=== PATIENT | male | born 2000 | race Caucasian/White ===

== ENCOUNTER 2021-11-20 22:39 | Observation (INO) | payer OTHER ==
[~2021-11-20] VITALS: Ht 182.9 cm; Wt 81.0 kg
[2021-11-20 22:58] LABS: BASO % 0.7 % (0.0-2.0); EOS # 0.4 K/mm3 (0.0-0.7); EOS % 7.7 % (0.0-4.0); GRAN # 2.4 K/mm3 (1.4-6.5); GRAN % 43.8 % (42.2-75.2); HEMATOCRIT 41.5 % (42.0-52.0); HEMOGLOBIN 14.1 g/dl (13.5-18.0); LYMPH # 1.8 K/mm3 (1.2-3.4); LYMPH % 33.7 % (20.0-51.0); MEAN CELL VOLUME 92 fl (80.0-100.0); MEAN CORPUSCULAR HEMOGLOBIN 31 pg (27-31); MEAN CORPUSCULAR HGB CONC 34 g/dl (33.0-37.0); MEAN PLATELET VOLUME 9.9 fl (7.4-10.4); MONO # 0.8 K/mm3 (0.1-0.6); MONO % 13.7 % (1.7-9.3); PLATELET COUNT 244 K/mm3 (130-400); RED BLOOD COUNT 4.53 M/mm3 (4.20-5.60); REDCELL DISTRIBUTION WIDTH-CV 12.7 % (11.5-14.5)
[2021-11-20 23:09] LABS: BILIRUBIN,TOTAL 0.3 mg/dL (0.2-1.2); CALCIUM 8.7 mg/dL (8.4-10.2); CREATININE, serum 1.19 mg/dL (0.72-1.25); POTASSIUM 3.7 mmol/L (3.5-4.5); TOTAL PROTEIN 7.5 gm/dL (6.2-8.1)
[2021-11-20] MEDS ORDERED: RT ADVAIR 128 DISKUS IH ×2 (23:30→23:31)
[2021-11-20] MEDS ORDERED: VENTOLIN0.09 MG IH (23:31)
[2021-11-20] MEDS ORDERED: PROZAC 10MG10 MG PO (23:32)
[2021-11-21 08:30] VITALS: BP 114/55; PULSE 79; TEMP 98
--- NOTE | 2021-11-21 10:30 | NUR ---
Pt arrived to the floor from ED. He is alert and oriented with pain complaints to his right side. Order for oral pain medication received and medication given. Oriented pt to his room upon arrival and educated on room service, plan of care and pain management. Pt is steady on his feet and has no complaints of feeling dizzy. Call light within reach. I did give him some snacks, water and he did order something to eat
[2021-11-21 12:55] VITALS: BP 116/58; PULSE 76; TEMP 98.2
[2021-11-21 15:35] VITALS: BP 127/70; PULSE 76; TEMP 98.4
--- NOTE | 2021-11-21 16:00 | NUR ---
Pt has continued to do well. Some pain complaints but reports the oral pain medication given is taking care of it. Pt has had some visitors off and on throughout the day.
--- NOTE | 2021-11-21 16:07 | NUR ---
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 He is fully independent with his ADL's. He utilizes [facility] for PCP and prescription needs. Patient does not have a DPOA-HC established. Education provided and he provides his mothers name Shakira Dunne ([phone]) as a contact but denied offer to complete form. Patient is planning on returning home once medically ready. Discharge plan:Home
[2021-11-21 16:57] LABS: HEMATOCRIT 40.4 % (42.0-52.0); HEMOGLOBIN 13.9 g/dl (13.5-18.0)
[2021-11-21 20:35] VITALS: BP 141/80; PULSE 74; TEMP 98.6
[2021-11-22 00:02] VITALS: BP 119/68; PULSE 60
--- NOTE | 2021-11-22 02:20 | NUR ---
PATIENT IN BED ON ROOM ENTRY. ALERT AND ORIENTED. HS MEDS PER EMAR. C/O MOD PAIN TO ABD AND R ARM. SCHEDULED MOTRIN GIVEN. PATIENT UP AMBULATING IN HALLS WITH FAMILY. DENIES ADDITIONAL NEEDS. STATES HE IS READY TO GO HOME.
[2021-11-22 03:51] VITALS: BP 109/67; PULSE 70; TEMP 98.6
--- NOTE | 2021-11-22 06:49 | NUR ---
Shift report received from maintenance mechanic 2nd shift RN
[2021-11-22 07:07] LABS: HEMATOCRIT 42.5 % (42.0-52.0); HEMOGLOBIN 14.3 g/dl (13.5-18.0)
[2021-11-22 08:02] VITALS: BP 121/62; PULSE 74; TEMP 97.7
--- NOTE | 2021-11-22 08:57 | NUR ---
Pt awake and lying supine in bed w/ HOB slightly elevated. Pt. reporting right sided rib pain. Silver Star given at his request. Pt. denies shortness or breath/dyspnea. Denies nausea/abd. pain. Abrasions/lacs present to right upper arm and right lower arm. Dressing/janneth wraps are CDI. Pt. denies further needs at this time. Call light is in his reach
[2021-11-22] MEDS ORDERED: NORCO 325 MG-51 TAB PO (11:52)
[2021-11-22] MEDS ORDERED: MOTRIN 800800 MG/TAB PO (11:52)
--- NOTE | 2021-11-22 12:31 | NUR ---
Discharge summary, Home Meds reviewed with the pt. Belongings were gathered by pt's SGT. Discussed follow up appts. Discussed bathing restrictions, lifting restrictions. Gauze & janneth wrap sent home with pt. Pt. v/u & had no further questions. Pt. escorted to vehicle for ride home. Pt. is ambulatory
== END 2021-11-22 12:34 | disposition home or self-care (01) ==
LOC: COL.ER 22:39 → SURG 11-21 00:53
PROVIDERS: Personal Emergency Response Attendant; ADMIT Surgery
DX: S51.811A Laceration without foreign body of right forearm, initial encounter (principal); S41.111A Laceration without foreign body of right upper arm, initial encounter; S27.0XXA Traumatic pneumothorax, initial encounter; S30.811A Abrasion of abdominal wall, initial encounter; S20.311A Abrasion of right front wall of thorax, initial encounter; V23.4XXA Motorcycle driver injured in collision with car, pick-up truck or van in traffic accident, initial encounter; Y93.9 Activity, unspecified; Y92.410 Unspecified street and highway as the place of occurrence of the external cause; Z23 Encounter for immunization
CPT/HCPCS: G0378; J0690; J2270; J2405; J3010; J7030; Q9967